=== PATIENT | male | born 1960 ===

== ENCOUNTER 2021-03-08 04:32 | Inpatient (IN) ==
[2021-03-08 12:42] LABS: Basophils % 0.6 % (0.0-0.8); Eosinophils # 0.5 10*3/uL (0.0-0.87); Eosinophils % 7.3 % (0.00-10.9); Hematocrit 24.1 VOL% (42.0-52.0); Hemoglobin 7.9 GM/DL (14.0-18.0); Immature Granulocytes % 0.3 %; Immature Granulocytes Absolute 0.02 #; Lymphocytes # 0.7 10*3/uL (1.4-4.0); Lymphocytes % 11.3 % (21.2-54.2); Mean Corpuscular HGB Conc 32.8 GM/DL (32-36); Mean Corpuscular Volume 94.5 FL (87-102); Mean Platelet Volume 9.5 FL (9.6-12.0); Monocytes % 9.7 % (1.7-12.7); Neutrophils % 70.8 % (38.7-73.9); Platelet Count 383 T/CUMM (130-400); Red Blood Count 2.55 MC/CUMM (3.8-5.5); Red Cell Distribution Width 13.5 % (9.3-17.3); White Blood Count 6.2 T/CUMM (4-12)
[2021-03-08] MEDS ORDERED: cefTRIAXone 1,000 MG in SODIUM CHLORIDE 0.9% 100 ML IV STA (12:49)
[2021-03-08] MEDS ORDERED: AZITHROMYCIN INJ 500 MG in SODIUM CHLORIDE 0.9% 250 ML IV STA (12:50)
[2021-03-08] MEDS ORDERED: FUROSEMIDE 100 MG/10 ML VIAL IV STA (12:50)
[2021-03-08 13:03] LABS: Albumin 2.1 G/DL (3.4-5.0); Bilirubin,Total 1.2 MG/DL (0.20-1.00); Calcium 7.4 MG/DL (8.5-10.1); Osmolality,Calculated 305.4 MOS/KG (273-304); Potassium 4.2 MMOL/L (3.5-5.1)
[2021-03-08 13:05] LABS: PT Patient Result 11.4 SECS (10.5-12.0)
[2021-03-08 14:11] LABS: Bilirubin,Urine Negative (Negative); Blood, Urine Negative (Negative); Glucose,Urine (UA) >=500 mg/dL (Negative); Ketones,Urine Negative (Negative); Mucus,Urine Occasional /LPF (Occasional); Nitrite,Urine Negative (Negative); Protein,Urine >=500 MG/DL; RBC,Urine 3 /HPF (0-4); Squamous Epithelial Cell,Urine Occasional /HPF (0-10); Urine Appearance CLEAR (Clear); Urine Color Straw (Yellow); Urine Specific Gravity 1.009 (1.001-1.035); Urine Urobilinogen < 2.0 EU/DL (<2.0)
[2021-03-08] MEDS ORDERED: DEXTROSE 50% 25 GM/50 ML SYRINGE IV PRN (14:17)
[2021-03-08] MEDS ORDERED: ONDANSETRON 4 MG/2 ML VIAL IV PRN (14:17)
[2021-03-08] MEDS ORDERED: GLUCAGON 1 MG VIAL IM PRN ×2 (14:17)
[2021-03-08] MEDS ORDERED: DOCUSATE SODIUM 100 MG CAPSULE PO PRN (14:17)
[2021-03-08] MEDS ORDERED: DEXTROSE 50% 25 GM/50 ML VIAL IV PRN (14:17)
[2021-03-08] MEDS ORDERED: ALUMINUM/MAGNES/SIMETH MAX STR 30 ML UDCUP PO PRN (14:17)
[2021-03-08 14:30] LABS: Eosinophils 6 % (0-10); Lymphocytes 8 % (20-55); Segmented Neutrophils 80 % (50-85); Total Cells Counted 100
[2021-03-08] MEDS ORDERED: SODIUM CHLORIDE 0.9% 1,000 ML IV SCH (14:30)
[2021-03-08 14:31] LABS: Platelet Estimate Normal
[2021-03-08] MEDS: hydrALAZINE 20 MG/1 ML VIAL IV PRN (15:07)
[2021-03-08 15:33] LABS: % Iron Saturation 30.1 % (18-50); Ferritin 532.2 ng/mL (26-388)
[2021-03-08 15:34] LABS: Folate 10.21 NG/ML (5.38-24.0)
[2021-03-08 15:39] LABS: Thyroid Stimulating Hormone 2.83 uIU/ml (0.358-3.74)
[2021-03-08] MEDS: INSULIN LISPRO 100 UNIT/ML SUBCUT SCH ×2 (18:01→21:12)
[2021-03-08 18:24] LABS: Calcium 7.3 MG/DL (8.5-10.1); Osmolality,Calculated 303.5 MOS/KG (273-304); Potassium 4.3 MMOL/L (3.5-5.1)
[2021-03-08] MEDS: FUROSEMIDE 40 MG/4 ML VIAL IV SCH (21:12)
[2021-03-08] MEDS: SODIUM BICARBONATE 650 MG TABLET PO SCH (21:12)
[2021-03-09 05:21] LABS: Basophils # 0.1 10*3/uL (0.0-0.2); Basophils % 0.8 % (0.0-0.8); Eosinophils # 0.5 10*3/uL (0.0-0.87); Eosinophils % 7.6 % (0.00-10.9); Hematocrit 21.5 VOL% (42.0-52.0); Hemoglobin 6.9 GM/DL (14.0-18.0); Immature Granulocytes % 0.5 %; Immature Granulocytes Absolute 0.03 #; Lymphocytes # 0.9 10*3/uL (1.4-4.0); Lymphocytes % 14.3 % (21.2-54.2); Mean Corpuscular HGB Conc 32.1 GM/DL (32-36); Mean Corpuscular Volume 94.7 FL (87-102); Mean Platelet Volume 9.3 FL (9.6-12.0); Monocytes % 11.3 % (1.7-12.7); Neutrophils % 65.5 % (38.7-73.9); Platelet Count 331 T/CUMM (130-400); Red Blood Count 2.27 MC/CUMM (3.8-5.5); Red Cell Distribution Width 13.5 % (9.3-17.3); White Blood Count 5.9 T/CUMM (4-12)
[2021-03-09 05:47] LABS: Alanine Aminotransferase 25 U/L (16-61); Albumin 1.7 G/DL (3.4-5.0); Alkaline Phosphatase 102 U/L (45-117); Aspartate Amino Transferase 19 U/L (0-37); Bilirubin,Total < 0.39 MG/DL (0.20-1.00); Blood Urea Nitrogen 69 MG/DL (7-18); Calcium 7.3 MG/DL (8.5-10.1); Carbon Dioxide 22 MMOL/L (21-32); Estimated Glom Filtration Rate 9 ML/MIN; Glucose 155 MG/DL (74-106); HDL Cholesterol 32 MG/DL (40-60); Osmolality,Calculated 303.3 MOS/KG (273-304); Potassium 4.1 MMOL/L (3.5-5.1); Risk Ratio 3.97; Sodium 141 MMOL/L (136-145); Triglycerides 77 MG/DL (2-150); VLDL Cholesterol 15.4 MG/DL
[2021-03-09] MEDS ORDERED: SODIUM CHLORIDE 0.9% 1,000 ML IV PRN (08:04)
[2021-03-09] MEDS: SODIUM BICARBONATE 650 MG TABLET PO SCH ×2 (09:28→20:56)
[2021-03-09] MEDS: INSULIN LISPRO 100 UNIT/ML SUBCUT SCH ×4 (09:28→20:56)
[2021-03-09] MEDS: PANTOPRAZOLE 40 MG TABLET PO SCH (09:28)
[2021-03-09] MEDS: FUROSEMIDE 40 MG/4 ML VIAL IV SCH ×2 (09:28→16:25)
[2021-03-09] MEDS: cefTRIAXone 1,000 MG in SODIUM CHLORIDE 0.9% 100 ML IV SCH (14:05)
[2021-03-09] MEDS ORDERED: AZITHROMYCIN INJ 250 MG in SODIUM CHLORIDE 0.9% 250 ML IV SCH (15:00)
[2021-03-09] MEDS: ACETAMINOPHEN 325 MG TABLET PO PRN (20:57)
[2021-03-09 23:58] LABS: Hematocrit 25.9 VOL% (42.0-52.0); Hemoglobin 8.5 GM/DL (14.0-18.0)
[2021-03-10 06:07] LABS: Basophils # 0.1 10*3/uL (0.0-0.2); Basophils % 0.9 % (0.0-0.8); Eosinophils # 0.6 10*3/uL (0.0-0.87); Eosinophils % 8.8 % (0.00-10.9); Hematocrit 26.3 VOL% (42.0-52.0); Hemoglobin 8.6 GM/DL (14.0-18.0); Immature Granulocytes % 0.3 %; Immature Granulocytes Absolute 0.02 #; Lymphocytes # 1.2 10*3/uL (1.4-4.0); Lymphocytes % 18.3 % (21.2-54.2); Mean Corpuscular HGB Conc 32.7 GM/DL (32-36); Mean Corpuscular Volume 92.6 FL (87-102); Mean Platelet Volume 9.4 FL (9.6-12.0); Monocytes % 9.5 % (1.7-12.7); Neutrophils % 62.2 % (38.7-73.9); Platelet Count 331 T/CUMM (130-400); Red Blood Count 2.84 MC/CUMM (3.8-5.5); Red Cell Distribution Width 13.6 % (9.3-17.3); White Blood Count 6.3 T/CUMM (4-12)
[2021-03-10 06:20] LABS: Calcium 7.1 MG/DL (8.5-10.1); Osmolality,Calculated 302.1 MOS/KG (273-304); Potassium 4.1 MMOL/L (3.5-5.1)
[2021-03-10] MEDS: INSULIN LISPRO 100 UNIT/ML SUBCUT SCH ×4 (07:34→20:45)
[2021-03-10 07:39] LABS: Hepatitis B Core IgM Quant 0.17 Index; Hepatitis B Surface Ag Quant < 0.10 Index; Hepatitis B Surface Ag Result Non-Reactive (NonReactive); Hepatitis C Virus Ab Quant 0.17 Index; Hepatitis C Virus Ab Result Non-Reactive (NonReactive)
[2021-03-10] MEDS: FUROSEMIDE 40 MG/4 ML VIAL IV SCH ×2 (08:05→17:24)
[2021-03-10] MEDS: SODIUM BICARBONATE 650 MG TABLET PO SCH ×2 (08:08→20:45)
[2021-03-10] MEDS: ACETAMINOPHEN 325 MG TABLET PO PRN (08:08)
[2021-03-10] MEDS: PANTOPRAZOLE 40 MG TABLET PO SCH (08:08)
[2021-03-10] MEDS: AZITHROMYCIN INJ 500 MG in SODIUM CHLORIDE 0.9% 250 ML IV SCH (08:22)
[2021-03-10] MEDS ORDERED: MAGNESIUM SULF RIDER 2 GM/50 ML PREMIX IV STA (12:57)
[2021-03-10] MEDS: cefTRIAXone 1,000 MG in SODIUM CHLORIDE 0.9% 100 ML IV SCH (13:01)
[2021-03-10] MEDS: FERROUS SULFATE 325 MG TABLET PO SCH (20:45)
[2021-03-11] MEDS: hydrALAZINE 20 MG/1 ML VIAL IV PRN (01:36)
[2021-03-11 06:47] LABS: Basophils # 0.1 10*3/uL (0.0-0.2); Basophils % 0.9 % (0.0-0.8); Eosinophils # 0.7 10*3/uL (0.0-0.87); Eosinophils % 8.7 % (0.00-10.9); Hematocrit 31.7 VOL% (42.0-52.0); Hemoglobin 10.3 GM/DL (14.0-18.0); Immature Granulocytes % 0.5 %; Immature Granulocytes Absolute 0.04 #; Lymphocytes # 0.5 10*3/uL (1.4-4.0); Lymphocytes % 6.9 % (21.2-54.2); Mean Corpuscular HGB Conc 32.5 GM/DL (32-36); Mean Platelet Volume 9.5 FL (9.6-12.0); Platelet Count 392 T/CUMM (130-400); Red Blood Count 3.41 MC/CUMM (3.8-5.5); Red Cell Distribution Width 13.3 % (9.3-17.3); White Blood Count 7.8 T/CUMM (4-12)
[2021-03-11 07:03] LABS: Calcium 8.1 MG/DL (8.5-10.1); Osmolality,Calculated 296.5 MOS/KG (273-304); Potassium 3.9 MMOL/L (3.5-5.1)
[2021-03-11] MEDS: INSULIN LISPRO 100 UNIT/ML SUBCUT SCH ×4 (08:16→22:35)
[2021-03-11] MEDS: FUROSEMIDE 40 MG/4 ML VIAL IV SCH ×2 (08:41→17:15)
[2021-03-11] MEDS: AZITHROMYCIN INJ 500 MG in SODIUM CHLORIDE 0.9% 250 ML IV SCH (08:42)
[2021-03-11] MEDS: SODIUM BICARBONATE 650 MG TABLET PO SCH ×2 (08:43→22:34)
[2021-03-11] MEDS: FERROUS SULFATE 325 MG TABLET PO SCH ×2 (08:43→22:34)
[2021-03-11] MEDS: PANTOPRAZOLE 40 MG TABLET PO SCH (08:43)
[2021-03-11 13:06] LABS: Glomerular Basement Membrane A < 0.2 U; Myeloperoxidase Antibody < 0.2 U
[2021-03-11] MEDS: cefTRIAXone 1,000 MG in SODIUM CHLORIDE 0.9% 100 ML IV SCH (14:19)
[2021-03-11] MEDS: TRAVOPROST 0.004% OPH SOLN 2.5 ML BOTTLE BOTH EYES SCH ×2 (18:03→22:35)
[2021-03-12] MEDS ORDERED: HEPARIN 5,000 UNIT/1 ML VIAL ONE (06:25)
[2021-03-12] MEDS ORDERED: BUPIVACAINE MPF 0.25% 30 ML VIAL ONE (06:25)
[2021-03-12] MEDS ORDERED: LIDOCAINE 1%/EPI INJ 20 ML VIAL ONE (06:25)
[2021-03-12 06:35] LABS: Basophils % 0.9 % (0.0-0.8); Eosinophils # 0.2 10*3/uL (0.0-0.87); Eosinophils % 6.6 % (0.00-10.9); Hematocrit 29.8 VOL% (42.0-52.0); Hemoglobin 9.6 GM/DL (14.0-18.0); Immature Granulocytes % 0.9 %; Immature Granulocytes Absolute 0.03 #; Lymphocytes # 0.4 10*3/uL (1.4-4.0); Lymphocytes % 12.3 % (21.2-54.2); Mean Corpuscular HGB Conc 32.2 GM/DL (32-36); Mean Corpuscular Volume 93.4 FL (87-102); Mean Platelet Volume 9.5 FL (9.6-12.0); Monocytes % 20.9 % (1.7-12.7); Neutrophils % 58.4 % (38.7-73.9); Platelet Count 319 T/CUMM (130-400); Red Blood Count 3.19 MC/CUMM (3.8-5.5); Red Cell Distribution Width 13.2 % (9.3-17.3); White Blood Count 3.5 T/CUMM (4-12)
[2021-03-12] MEDS ORDERED: fentaNYL 100 MCG/2 ML VIAL ONE (06:45)
[2021-03-12] MEDS ORDERED: MIDAZOLAM 2 MG/2 ML VIAL ONE (06:45)
[2021-03-12 06:59] LABS: Band Neutrophils 1 % (0-10); Eosinophils 4 % (0-10); Hypochromia 1+; Lymphocytes 6 % (20-55); Microcytosis 1+; Platelet Estimate Adequate; Segmented Neutrophils 69 % (50-85); Total Cells Counted 100
[2021-03-12] MEDS ORDERED: ceFAZolin 1,000 MG VIAL ONE (07:22)
[2021-03-12] MEDS ORDERED: KETAMINE 500 MG/10 ML VIAL ONE (07:26)
[2021-03-12] MEDS ORDERED: TISSUE ADHESIVE 1 EACH APPLICATOR TOP ONE (07:47)
[2021-03-12] MEDS ORDERED: LIDOCAINE 2% 5 ML VIAL ONE (07:53)
[2021-03-12] MEDS ORDERED: propofoL 200 MG/20 ML VIAL IV ONE (07:53)
[2021-03-12 07:55] LABS: Calcium 7.7 MG/DL (8.5-10.1)
[2021-03-12 08:05] LABS: Osmolality,Calculated 294.8 MOS/KG (273-304); Potassium 3.8 MMOL/L (3.5-5.1)
[2021-03-12] MEDS: INSULIN LISPRO 100 UNIT/ML SUBCUT SCH ×4 (08:25→20:35)
[2021-03-12] MEDS: FUROSEMIDE 40 MG/4 ML VIAL IV SCH (08:26)
[2021-03-12] MEDS: PANTOPRAZOLE 40 MG TABLET PO SCH (08:26)
[2021-03-12] MEDS: FERROUS SULFATE 325 MG TABLET PO SCH ×2 (08:26→20:35)
[2021-03-12] MEDS: SODIUM BICARBONATE 650 MG TABLET PO SCH ×2 (08:27→20:35)
[2021-03-12] MEDS: AZITHROMYCIN INJ 500 MG in SODIUM CHLORIDE 0.9% 250 ML IV SCH (08:28)
[2021-03-12] MEDS ORDERED: HEPARIN 10,000 UNIT/10 ML VIAL IV PRN (09:13)
[2021-03-12] MEDS: TRAVOPROST 0.004% OPH SOLN 2.5 ML BOTTLE BOTH EYES SCH ×2 (10:49→20:35)
[2021-03-12 14:00] LABS: Antinuclear Ab, S 0.2 U
[2021-03-12] MEDS: cefTRIAXone 1,000 MG in SODIUM CHLORIDE 0.9% 100 ML IV SCH (15:30)
[2021-03-13 05:19] LABS: Basophils % 0.8 % (0.0-0.8); Eosinophils # 0.2 10*3/uL (0.0-0.87); Eosinophils % 3.3 % (0.00-10.9); Hematocrit 34.3 VOL% (42.0-52.0); Hemoglobin 11.3 GM/DL (14.0-18.0); Immature Granulocytes % 0.6 %; Immature Granulocytes Absolute 0.03 #; Lymphocytes # 0.7 10*3/uL (1.4-4.0); Lymphocytes % 13.8 % (21.2-54.2); Mean Corpuscular HGB Conc 32.9 GM/DL (32-36); Mean Corpuscular Volume 92.5 FL (87-102); Mean Platelet Volume 9.6 FL (9.6-12.0); Neutrophils % 63.5 % (38.7-73.9); Platelet Count 288 T/CUMM (130-400); Red Blood Count 3.71 MC/CUMM (3.8-5.5); Red Cell Distribution Width 13.1 % (9.3-17.3); White Blood Count 4.8 T/CUMM (4-12)
[2021-03-13 05:45] LABS: Calcium 7.9 MG/DL (8.5-10.1); Osmolality,Calculated 296.4 MOS/KG (273-304); Potassium 3.9 MMOL/L (3.5-5.1)
[2021-03-13 05:50] LABS: Band Neutrophils 5 % (0-10); Eosinophils 4 % (0-10); Hypochromia Slight; Lymphocytes 11 % (20-55); Metamyelocytes 1 %; Microcytosis 1+; Ovalocytes Slight; Segmented Neutrophils 64 % (50-85); Total Cells Counted 100
[2021-03-13 05:51] LABS: Platelet Estimate Normal
[2021-03-13] MEDS: INSULIN LISPRO 100 UNIT/ML SUBCUT SCH ×4 (08:00→20:46)
[2021-03-13] MEDS: SODIUM BICARBONATE 650 MG TABLET PO SCH ×2 (08:34→20:46)
[2021-03-13] MEDS: FERROUS SULFATE 325 MG TABLET PO SCH ×2 (08:34→20:46)
[2021-03-13] MEDS: PANTOPRAZOLE 40 MG TABLET PO SCH (08:34)
[2021-03-13] MEDS: TRAVOPROST 0.004% OPH SOLN 2.5 ML BOTTLE BOTH EYES SCH ×2 (08:35→23:32)
[2021-03-13] MEDS: AZITHROMYCIN INJ 500 MG in SODIUM CHLORIDE 0.9% 250 ML IV SCH (13:24)
[2021-03-13] MEDS: cefTRIAXone 1,000 MG in SODIUM CHLORIDE 0.9% 100 ML IV SCH (15:05)
[2021-03-14 05:39] LABS: Basophils # 0.1 10*3/uL (0.0-0.2); Basophils % 1.1 % (0.0-0.8); Eosinophils # 0.2 10*3/uL (0.0-0.87); Eosinophils % 4.7 % (0.00-10.9); Hematocrit 33.8 VOL% (42.0-52.0); Immature Granulocytes % 0.6 %; Immature Granulocytes Absolute 0.03 #; Lymphocytes # 0.8 10*3/uL (1.4-4.0); Lymphocytes % 16.9 % (21.2-54.2); Mean Corpuscular HGB Conc 32.5 GM/DL (32-36); Mean Corpuscular Volume 92.3 FL (87-102); Mean Platelet Volume 9.8 FL (9.6-12.0); Monocytes % 12.2 % (1.7-12.7); Neutrophils % 64.5 % (38.7-73.9); Platelet Count 229 T/CUMM (130-400); Red Blood Count 3.66 MC/CUMM (3.8-5.5); Red Cell Distribution Width 13.1 % (9.3-17.3); White Blood Count 4.7 T/CUMM (4-12)
[2021-03-14 05:51] LABS: Calcium 7.8 MG/DL (8.5-10.1); Potassium 3.9 MMOL/L (3.5-5.1)
[2021-03-14] MEDS: INSULIN LISPRO 100 UNIT/ML SUBCUT SCH ×4 (07:47→20:54)
[2021-03-14] MEDS: TRAVOPROST 0.004% OPH SOLN 2.5 ML BOTTLE BOTH EYES SCH ×2 (08:40→20:55)
[2021-03-14] MEDS: SODIUM BICARBONATE 650 MG TABLET PO SCH ×2 (08:41→20:53)
[2021-03-14] MEDS: PANTOPRAZOLE 40 MG TABLET PO SCH (08:41)
[2021-03-14] MEDS: FERROUS SULFATE 325 MG TABLET PO SCH ×2 (08:41→20:53)
[2021-03-14] MEDS ORDERED: ALTEPLASE 2 MG VIAL INTRACATH ONE (10:00)
[2021-03-14] MEDS ORDERED: ALTEPLASE 2 MG VIAL IV ONE (11:30)
[2021-03-14] MEDS: cefTRIAXone 1,000 MG in SODIUM CHLORIDE 0.9% 100 ML IV SCH (13:55)
[2021-03-15] MEDS: INSULIN LISPRO 100 UNIT/ML SUBCUT SCH ×4 (07:45→21:50)
[2021-03-15] MEDS: SODIUM BICARBONATE 650 MG TABLET PO SCH ×2 (09:52→20:36)
[2021-03-15] MEDS: TRAVOPROST 0.004% OPH SOLN 2.5 ML BOTTLE BOTH EYES SCH ×2 (09:53→20:36)
[2021-03-15] MEDS: FERROUS SULFATE 325 MG TABLET PO SCH ×2 (09:53→20:36)
[2021-03-15] MEDS: PANTOPRAZOLE 40 MG TABLET PO SCH (09:53)
[2021-03-16 05:48] LABS: Basophils % 0.9 % (0.0-0.8); Eosinophils # 0.5 10*3/uL (0.0-0.87); Hemoglobin 10.1 GM/DL (14.0-18.0); Immature Granulocytes % 0.4 %; Immature Granulocytes Absolute 0.02 #; Lymphocytes # 0.9 10*3/uL (1.4-4.0); Lymphocytes % 20.1 % (21.2-54.2); Mean Corpuscular HGB Conc 32.6 GM/DL (32-36); Mean Corpuscular Volume 91.2 FL (87-102); Mean Platelet Volume 10.5 FL (9.6-12.0); Monocytes % 9.3 % (1.7-12.7); Neutrophils % 58.3 % (38.7-73.9); Platelet Count 189 T/CUMM (130-400); Red Cell Distribution Width 12.7 % (9.3-17.3); White Blood Count 4.6 T/CUMM (4-12)
[2021-03-16 06:22] LABS: Calcium 7.4 MG/DL (8.5-10.1); Osmolality,Calculated 291.8 MOS/KG (273-304); Potassium 3.7 MMOL/L (3.5-5.1)
[2021-03-16 06:31] LABS: Eosinophils 12 % (0-10); Lymphocytes 17 % (20-55); Platelet Estimate Adequate; Segmented Neutrophils 65 % (50-85); Total Cells Counted 100
[2021-03-16] MEDS: INSULIN LISPRO 100 UNIT/ML SUBCUT SCH ×4 (08:29→20:56)
[2021-03-16] MEDS: TRAVOPROST 0.004% OPH SOLN 2.5 ML BOTTLE BOTH EYES SCH ×2 (08:30→20:57)
[2021-03-16] MEDS: PANTOPRAZOLE 40 MG TABLET PO SCH (08:30)
[2021-03-16] MEDS: SODIUM BICARBONATE 650 MG TABLET PO SCH ×2 (08:30→20:56)
[2021-03-16] MEDS: FERROUS SULFATE 325 MG TABLET PO SCH ×2 (08:30→20:56)
[2021-03-17 05:06] LABS: Basophils # 0.1 10*3/uL (0.0-0.2); Eosinophils # 0.5 10*3/uL (0.0-0.87); Eosinophils % 9.1 % (0.00-10.9); Hematocrit 31.5 VOL% (42.0-52.0); Hemoglobin 10.3 GM/DL (14.0-18.0); Immature Granulocytes % 0.6 %; Immature Granulocytes Absolute 0.03 #; Lymphocytes # 0.7 10*3/uL (1.4-4.0); Lymphocytes % 13.6 % (21.2-54.2); Mean Corpuscular HGB Conc 32.7 GM/DL (32-36); Mean Corpuscular Volume 90.8 FL (87-102); Mean Platelet Volume 10.1 FL (9.6-12.0); Monocytes % 9.5 % (1.7-12.7); Neutrophils % 66.2 % (38.7-73.9); Platelet Count 206 T/CUMM (130-400); Red Blood Count 3.47 MC/CUMM (3.8-5.5); Red Cell Distribution Width 12.8 % (9.3-17.3); White Blood Count 4.9 T/CUMM (4-12)
[2021-03-17 05:29] LABS: Eosinophils 9 % (0-10); Lymphocytes 6 % (20-55); Platelet Estimate Adequate; Segmented Neutrophils 79 % (50-85); Total Cells Counted 100
[2021-03-17 05:30] LABS: Hypochromia 1+; Microcytosis 1+
[2021-03-17 05:31] LABS: Calcium 7.6 MG/DL (8.5-10.1); Osmolality,Calculated 291.8 MOS/KG (273-304); Potassium 3.7 MMOL/L (3.5-5.1)
[2021-03-17 08:00] VITALS: BP 140/71
[2021-03-17] MEDS: INSULIN LISPRO 100 UNIT/ML SUBCUT SCH ×2 (09:11→12:19)
[2021-03-17] MEDS: SODIUM BICARBONATE 650 MG TABLET PO SCH (09:11)
[2021-03-17] MEDS: FERROUS SULFATE 325 MG TABLET PO SCH (09:11)
[2021-03-17] MEDS: PANTOPRAZOLE 40 MG TABLET PO SCH (09:11)
[2021-03-17] MEDS: TRAVOPROST 0.004% OPH SOLN 2.5 ML BOTTLE BOTH EYES SCH (09:12)
== END 2021-03-17 16:09 | disposition home or self-care (01) | DRG 291 ==
LOC: N.ED 04:32 → SUATTDRO 13:59 → N.EDINP 13:59 → N.3E 17:01
PROVIDERS: ADMIT Internal Medicine; ATTEND Internal Medicine